=== PATIENT | male | born 1950 | race Caucasian/White ===

== ENCOUNTER 2017-06-19 09:33 | Day surgery (SDC) | payer MEDICARE, OTHER ==
[2017-06-19] MEDS ORDERED: LACTATED RINGERS 1,000 ML IV ONE (11:40)
[2017-06-19] MEDS ORDERED: fentaNYL 100 MCG/2 ML VIAL IVP ONE (12:06)
[2017-06-19] MEDS ORDERED: MIDAZOLAM 2 MG/2 ML VIAL IVP ONE (12:06)
[2017-06-19 12:55] VITALS: BP 114/70
--- NOTE | 2017-06-27 09:57 | SURGERY HX AND PHYSICAL(T) ---
Surgical History & Physical - PMH/PSH/Social Hx Does the pt have a hx of MRSA?: No Eyes, Ears, Nose, Throat: None Cardiovascular: Hypertension, High cholesterol, Coronary artery disease Respiratory: None Skin: None Endocrine/Autoimmune: Type 2 diabetes Gastrointestinal: None Urinary: None Psychiatric: None General: Colonoscopy Cardiothoracic: Coronary stent, Cardiac catheterization - Home Meds and Allergies Home Medications: Aspirin [Adult Low Dose Aspirin EC] 81 mg PO DAILY 06/18/17 Carvedilol 12.5 mg PO DAILY 06/18/17 Isosorbide Mononitrate [Isosorbide Mononitrate ER] 60 mg PO DAILY PRN 06/18/17 Nitroglycerin 0.4 mg SL Q5MIN PRN MDD 1.2 06/18/17 Rosuvastatin Calcium [Crestor] 10 mg PO DAILY 06/18/17 Ubidecarenone/Vitamin E Mixed [Etg24-Udc E 100 mg-10 Unit Sfg] 1 each PO DAILY 06/18/17 amLODIPine [Norvasc] 10 mg PO DAILY 06/18/17 metFORMIN [Glucophage] 1,000 mg PO BIDWM 06/18/17 Allergies/Adverse Reactions: Allergies Allergy/AdvReac Type Severity Reaction Status Date / Time No Known Drug Allergies Allergy Verified 06/18/17 14:17 - Vital Signs Heart Rate: 59 Temperature: 36.3 C Respiratory Rate: 16 O2 Saturation: 99 Weight (kg): 68.4 kg Height: 1.73 m - Patient Review Patient Review: Problems were reviewed with the patient during this visit. Medications were reviewed with the patient during this visit. Allergies were reviewed this patient during this visit. Pertinent Tests Reviewed: All pertitent test for this patient were reviewed. - Assessment & Plan Assessment and Plan: This very pleasant 67-year-old male was initially seen on May 15, 2017 and was scheduled for June 03, 2017. Subsequent to this the patient was rescheduled to June 19, 2017. This was due to the fact that our operating room and endoscopy suite was closed. Normally, the patient comes back to my office to have an update history and physical but the patient did not wish to do so. Additionally, these patients are normally scheduled last so that the update will not delay other patients. This was not done. Additionally, I am to be informed when his update is needed and I was not. Hence, I am dictating this update history and physical, well after the date of the colonoscopy. On the date of the colonoscopy the patient was examined and there were no substantive changes to the H&P as documented in my addendum, but I understand the rules to I will complete this form in addition. He describes his bowel movements as regular and normal. He denies nausea, vomiting, constipation, diarrhea, melena, hematochezia, hematemesis, abdominal pain, unexplained weight loss, or change in the color, character or caliber of his stool. I have a report of his last colonoscopy that was done at [facility] by Dr. Sarbjit Spencer. During the procedure 2 mg of Versed and 100 mg of Demerol were used. The impression was a normal colonoscopy with a recommendation that a repeat colonoscopy be performed in 10 years time. Current Allergies: None Current Medications: VITAMIN C 500 MG ORAL TABLET (ASCORBIC ACID) Take one tablet by mouth daily DAILY MULTIVITAMIN ORAL CAPSULE (MULTIPLE VITAMINS-MINERALS) 1 tab daily COQ10 30 MG ORAL CAPSULE (COENZYME Q10) Take two capsules by mouth every morning and two capsules every evening METFORMIN HCL 1000 MG ORAL TABLET (METFORMIN HCL) Take one tabletby mouth twice daily PLAVIX 75 MG ORAL TABLET (CLOPIDOGREL BISULFATE) Take one tablet by mouth daily NITROSTAT 0.4 MG SUBLINGUAL TABLET SUBLINGUAL (NITROGLYCERIN) For chest pain, place one tablet under the tongue every five minutes for up to three doses. If no relief call 911. AMLODIPINE BESYLATE 10 MG ORAL TABLET (AMLODIPINE BESYLATE) Take one tablet by mouth daily for high blood pressure COREG 3.125 MG ORAL TABLET (CARVEDILOL) 1 tab twice daily LOSARTAN POTASSIUM 100 MG ORAL TABLET (LOSARTAN POTASSIUM) Take one tablet by mouth every morning CRESTOR 10 MG ORAL TABLET (ROSUVASTATIN CALCIUM) Take one tablet by mouth every evening Past Medical History: [place] Chest Pain Heart murmur HTN Hyperlipidemia Diabetes Past Surgical History: Stent 2016 Family History Summary: Mother (biol.) - Has Family History of Other Medical Problems - Diabetes, Heart - Entered On: 05/15/2017 Father (biol.) - Has Family History of Other Medical Problems - Heart - Entered On: 05/15/2017 Risk Factors: Smoked Tobacco Use: Former smoker Cigarettes: Yes Year quit: 1983 Years Since Last Quit: 34 Drug use: no Alcohol use: yes Type: beer Drinks per day: 1 Exercise: yes Times per week: 7 Type of Exercise: Hiking and walking Review of Systems CONSTITUTIONAL: No weight loss, fever, chills, weakness or fatigue. HEENT: Eyes: No visual loss, blurred vision, double vision or yellow sclerae. Ears, Nose, Throat: No hearing loss, sneezing, congestion, runny nose or sore throat. SKIN: No rash or itching. CARDIOVASCULAR: No chest pain, chest pressure or chest discomfort. No palpitations or edema. RESPIRATORY: No shortness of breath, cough or sputum. GASTROINTESTINAL: No anorexia, nausea, vomiting or diarrhea. No abdominal pain or blood. GENITOURINARY: No dysuria. No impotence. NEUROLOGICAL: No headache, dizziness, syncope, paralysis, ataxia, numbness or tingling in the extremities. No change in bowel or bladder control. MUSCULOSKELETAL: No muscle, back pain, joint pain or stiffness. HEMATOLOGIC: No anemia, bleeding or bruising. LYMPHATICS: No enlarged nodes. No history of splenectomy. PSYCHIATRIC: No history of depression or anxiety. ENDOCRINOLOGIC: No reports of sweating, cold or heat intolerance. No polyuria or polydipsia. ALLERGIES: No history of asthma, hives, eczema or rhinitis. Physical Exam General: 67-year old male, appeared stated age, well developed, well nourished HEENT: Normocephalic, atraumatic, extraocular movement intact, mucous membranes pink and moist, sclera anicteric and not injected, cerna white hair Neck: Supple without pain on palpation, mass or bruit Cardiac: Regular rate and rhythm without rub, gallop, or murmur Chest: Clear to auscultation bilaterally Abdomen: Soft, nontender, normoactive bowel sounds, no hepatomegaly, no splenomegaly Genitourinary: Deferred Rectal: Deferred until colonoscopy Extremities: No gross neurovascular problem, no clubbing, cyanosis or edema Gait: No gross motor deficit Psychiatric: Alert and oriented to person place and time, asks and answers questions appropriately, mood and affect appropriate Impression & Recommendations: Screening colonoscopy with possible biopsies and/or polypectomies. Indications , procedure, alternatives (such as barium enema, Cologuard and even no procedure at all) and risks including but not limited to perforation requiring operative repair, bleeding with its risks, and were fully explained to him. In the office, I bonita diagrams explaining the colonic anatomy and the proposed procedure and handed it to him. In the office, conscious sedation was discussed at length with him as were its risks including but not limited to loss of airway, aspiration, respiratory depression, and not enough relief of pain and anxiety and he indicated that he wished to have conscious sedation for his procedure. In the office, I explained that MAC anesthesia is associated with a higher incidence of colon perforation. Review of his history does not reveal any significant systemic disease that would contraindicate use of conscious sedation or MAC anesthesia. All questions were fully answered. Verbal and written consent was obtained. The patient in preparation for his colonoscopy has been n.p.o. and his colon has been mechanically prepped. 20 minutes of [id number] time spent with the patient the majority of which was spent in discussion and in the generation of this document Ling disclaimer: This document was created in part using voice recognition technology. Because of the inherent limitations of the system ([employer] user manual states that the licensee understands that speech recognition is a statistical process and that recognition errors are inherent in the process), occasional same sounding word substitutions and grammatical errors do occur and persist despite proofreading. Please read this document for context.
== END 2017-06-19 09:34 | disposition home or self-care (01) ==
LOC: SDS 09:33
PROVIDERS: ATTEND Surgery
PROC: 0DJD8ZZ Inspection of Lower Intestinal Tract, Via Natural or Artificial Opening Endoscopic (ICD-10-PCS; principal; 2017-06-19 10:45)
DX: Z12.11 Encounter for screening for malignant neoplasm of colon (principal); K64.8 Other hemorrhoids; I10 Essential (primary) hypertension; E11.9 Type 2 diabetes mellitus without complications; I25.10 Atherosclerotic heart disease of native coronary artery without angina pectoris; Z79.84 Long term (current) use of oral hypoglycemic drugs; Z79.82 Long term (current) use of aspirin; Z95.5 Presence of coronary angioplasty implant and graft; Z87.891 Personal history of nicotine dependence
CPT/HCPCS: G0121; J7120